=== PATIENT | female | born 1970 | race Caucasian/White ===

== ENCOUNTER 2018-03-25 12:48 | Emergency (ER) | payer MEDICAID ==
[~2018-03-25] VITALS: Ht 147.3 cm; Wt 98.9 kg
[~2018-03-25 12:48] MED LIST: PROMETHAZI6.25 MG/5; TRAMADOL HCL50 MG PO
[2018-03-25 13:55] LABS: UA SPECIFIC GRAVITY >=1.030 (1.005-1.035); microscopic required? YES; urine erythrocyte 3+ (NEGATIVE)
[2018-03-25 15:17] VITALS: BP 119/74
== END 2018-03-25 15:18 | disposition home or self-care (01) ==
LOC: ED 12:48
PROVIDERS: Emergency Medicine
DX: R82.71 Bacteriuria (principal); R50.9 Fever, unspecified; E66.01 Morbid (severe) obesity due to excess calories; E11.9 Type 2 diabetes mellitus without complications; Z98.890 Other specified postprocedural states
CPT/HCPCS: 82962; 87804

== ENCOUNTER 2018-08-13 04:23 | Emergency (ER) | payer MEDICAID ==
[~2018-08-13] VITALS: Ht 157.5 cm; Wt 97.5 kg
[2018-08-13 04:25] VITALS: Ht 157.5 cm; Wt 97.5 kg
[2018-08-13 07:01] VITALS: BP 113/67
== END 2018-08-13 07:01 | disposition home or self-care (01) ==
LOC: ED 04:23
DX: N39.0 Urinary tract infection, site not specified (principal); Z98.890 Other specified postprocedural states; E11.9 Type 2 diabetes mellitus without complications; F17.210 Nicotine dependence, cigarettes, uncomplicated
CPT/HCPCS: J1885; Q0162

== ENCOUNTER 2019-02-07 11:34 | Emergency (ER) | payer MEDICAID ==
[~2019-02-07] VITALS: Ht 160 cm; Wt 90.7 kg
[2019-02-07 11:41] VITALS: BP 113/49; Ht 160 cm; Wt 90.7 kg
== END 2019-02-07 12:49 | disposition home or self-care (01) ==
LOC: ED 11:34
DX: S29.012A Strain of muscle and tendon of back wall of thorax, initial encounter (principal); M25.511 Pain in right shoulder; E11.9 Type 2 diabetes mellitus without complications; V49.9XXA Car occupant (driver) (passenger) injured in unspecified traffic accident, initial encounter; Y93.I9 Activity, other involving external motion; Y92.413 State road as the place of occurrence of the external cause; Y99.8 Other external cause status
CPT/HCPCS: 72072